=== PATIENT | male | born 1950 | race Caucasian/White ===

== ENCOUNTER 2019-06-02 09:50 | Inpatient (IN) | payer BC, MEDICARE ==
[2019-06-02 11:27] LABS: Hemoglobin 15.6 g/dL (14.0-18.0); Mean Corpuscular HGB CONC 33.8 g/dL (32.0-36.0); Mean Corpuscular Hemoglobin 30.5 pg (27.0-31.0); Mean Corpuscular Volume 90.4 fL (78.0-98.0); Mean Platelet Volume 7.3 fL (7.4-10.4); Platelet Count 202 thou/uL (130-400); RBC Distribution Width 11.9 % (11.5-14.5); Red Blood Cell (RBC) Count 5.12 mill/uL (4.70-6.10)
[2019-06-02 11:49] LABS: ALT (SGPT) 33 U/L (8-55); AST (SGOT) 25 U/L (5-34); Albumin 4.5 g/dL (3.4-4.8); Alkaline Phosphatase 73 U/L (40-110); Anion Gap 10 mmol/L (10-20); BUN (Urea Nitrogen) 12 mg/dL (8.4-25.7); Bilirubin, Total 0.5 mg/dL (0.2-1.2); Calc. Creatinine Clearance 0 mL/min (70-130); Carbon Dioxide 33 mmol/L (23-31); Chloride 102 mmol/L (98-107); Estimated GFR-MDRD 79; Glucose 113 mg/dL (80-115); Potassium 4.8 mmol/L (3.5-5.1); Protein, Total 7.5 g/dL (5.8-8.1); Sodium 140 mmol/L (136-145)
[2019-06-02] MEDS ORDERED: Midazolam HCl 2 mg/2 ml Vial ONE (12:01)
[2019-06-02] MEDS ORDERED: Fentanyl 100 MCG/2 ML VIAL ONE (12:01)
[2019-06-02] MEDS ORDERED: Communication Order-Pharmacy FS SCH (13:48)
[2019-06-02] MEDS ORDERED: Aspirin 81 mg Enteric Coated Tablet PO SCH (14:00)
--- NOTE | 2019-06-02 14:15 | CON ---
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 He remains fairly active outdoors, and over the past couple of months, he has noticed some sharp chest pains, not necessarily related to exertion. He had not seen a doctor in many years. He did have a history of mild hypertension, on no medication. He was seen by Dr. Nathaniel Kuo, where he was noted to have elevated cholesterol level and referred to Dr. García, where a stress test was done yesterday, which was markedly abnormal. The patient underwent cardiac catheterization today showing 95% stenosis in his proximal LAD and mid LAD with an intervening diagonal, a 90% ramus stenosis, 30% stenosis in OM and a 90% stenosis in the large right coronary artery and its midportion that fed collaterals to the left LAD system. Left ventricular systolic function appeared normal on LV gram. PAST SURGICAL HISTORY: Includes a previous left nephrectomy at age 11. SOCIAL HISTORY: He is a nonsmoker. He is . REVIEW OF SYSTEMS: Negative for symptoms of a TIA or stroke. No history of GI bleeding or abnormalities of his bowel movements. He has nocturia x2. He denies peripheral edema or palpitations. PHYSICAL EXAMINATION: GENERAL: He is alert, cooperative gentleman, in no distress. VITAL SIGNS: Blood pressure is 140/80 and heart rate 80. NECK: No carotid bruits. LUNGS: Clear to auscultation. CARDIAC: Regular rate and rhythm. No murmurs. ABDOMEN: Mildly obese, nontender. No aneurysm. EXTREMITIES: He has easily palpable pedal pulses. His right arm dominant with a good left Po's test. PLAN: At this time is for coronary bypass grafting to the distal right coronary artery, ramus if diagonal is large enough and then the LAD. Informed consent has been obtained and I have discussed the case separately with the patient and . Job ID: [id number]
[2019-06-02] MEDS ORDERED: Atorvastatin Calcium 20 MG TAB PO SCH (21:00)
[2019-06-03] MEDS ORDERED: Nitroglycerin 0.4 MG TAB (25 Tab Bottle) SL PRN (00:03)
[2019-06-03] MEDS ORDERED: Acetaminophen/Codeine 30-300mg Tablet PO PRN ×2 (00:03)
[2019-06-03] MEDS ORDERED: CEFAZOLIN 2 GM in Premix Bag 1 BAG IVPB SCH (05:45)
[2019-06-03] MEDS ORDERED: Albumin 5% 500 ML ONE (06:45)
[2019-06-03] MEDS ORDERED: Prevnar 13-Val Conj/PF 0.5 ML SYRINGE IM ONE (09:00)
[2019-06-03] MEDS ORDERED: Heparin 10,000 UNITS/1 ML VIAL 30,000 UNITS in Sodium Chloride 0.9% 1,000 ML FS SCH (10:45)
[2019-06-03] MEDS ORDERED: Cardioplegic Soln 1,000 ML BAG ONE (11:26)
[2019-06-03] MEDS ORDERED: Rocuronium Bromide 10 MG/ML (10ML VIAL) ONE (11:26)
[2019-06-03] MEDS ORDERED: Thrombin 5000 UNITS/5 ML VIAL ONE (11:26)
[2019-06-03] MEDS ORDERED: Papaverine 60 MG/2 ML VIAL ONE (11:26)
[2019-06-03] MEDS ORDERED: Magnesium Sulfate 1 GM/2 ML VIAL ONE (11:26)
[2019-06-03] MEDS ORDERED: Sodium Bicarb 50 MEQ/50 ML Abboject 8.4% SYRINGE ONE (11:26)
[2019-06-03] MEDS ORDERED: Lidocaine 1% PF 5 ML VIAL ONE (11:26)
[2019-06-03] MEDS ORDERED: Heparin 5,000 UNITS/ML VIAL ONE (11:26)
[2019-06-03] MEDS ORDERED: Heparin 30,000 units/30 ml VIAL ONE (11:26)
[2019-06-03] MEDS ORDERED: Potassium Chloride 60 MEQ/30 ML VIAL ONE (11:26)
[2019-06-03] MEDS ORDERED: Lidocaine 2% PF 5 ML VIAL ONE (11:26)
[2019-06-03] MEDS ORDERED: Aminocaproic Acid 5 GM/20 ML VIAL ONE (11:26)
[2019-06-03] MEDS ORDERED: Calcium Chloride 1 GM/10 ML Abboject SYRINGE ONE (11:26)
[2019-06-03] MEDS ORDERED: Vecuronium 10 MG VIAL ONE ×2 (11:26→14:39)
[2019-06-03] MEDS ORDERED: PROPOFOL 200 MG/20 ML VIAL ONE (11:26)
[2019-06-03] MEDS ORDERED: Protamine Sulfate 250 MG/25 ML VIAL ONE (11:26)
[2019-06-03] MEDS ORDERED: Norepinephrine 4 MG/4 ML VIAL ONE (11:49)
[2019-06-03] MEDS ORDERED: Nitroglycerin 50 MG/250 ML BOT 250 ML ONE (11:49)
[2019-06-03] MEDS ORDERED: Fentanyl 250 MCG/5 ML VIAL ONE (12:03)
[2019-06-03] MEDS ORDERED: Midazolam HCl 5 mg/5 ml Vial ONE (12:03)
[2019-06-03] MEDS ORDERED: Insulin Regular 300 UNITS/3 ML VIAL ONE ×2 (12:54→13:14)
[2019-06-03] MEDS ORDERED: PHENYLEPHRINE-NS 100 MCG/ML 10 ML SYRINGE ONE (13:53)
[2019-06-03 16:22] LABS: Actual Bicarbonate (HCO3a) 19.9 mEq/L (22-28); Base Excess (BEa) -3.5 mEq/L (-2.0 to +3.0); CO2 Tension 31.1 mmHg (35.0-45.0); Carboxyhemoglobin (COHb) 0.5 gm% (0.0-3.0); Hemoglobin (Hb) 12.9 g/dL (14.0-18.0); O2 Tension (PaO2) 70.8 mmHg (> 80.0); Potassium - ABG Lab 4.02 mmol/L (3.70-5.30); Puncture Site ALINE; pH, Arterial 7.42 (7.35-7.45)
[2019-06-03] MEDS ORDERED: Promethazine HCl 25 MG/ML VIAL IM PRN (16:22)
[2019-06-03] MEDS ORDERED: Morphine 2 MG/ML SYRINGE SLOW IVP PRN (16:22)
[2019-06-03] MEDS ORDERED: hydrALAZINE 20 MG/ML VIAL SLOW IVP PRN (16:22)
[2019-06-03] MEDS ORDERED: Fentanyl 100 MCG/2 ML VIAL SLOW IVP PRN (16:22)
[2019-06-03] MEDS ORDERED: Norepinephrine 8 MG/0.9% NS 250 ML IVPB PRN (16:22)
[2019-06-03] MEDS ORDERED: Hetastarch 6% 500 ML 500 ML IVPB PRN (16:22)
[2019-06-03] MEDS ORDERED: niCARdipine 25 MG in Sodium Chloride 0.9% 250 ML 240 ML IVPB PRN (16:22)
[2019-06-03] MEDS ORDERED: DOPamine 400 MG/D5W 250 ML 250 ML IVPB PRN (16:22)
[2019-06-03] MEDS ORDERED: Acetaminophen 325 MG TAB PO PRN (16:22)
[2019-06-03] MEDS ORDERED: Bisacodyl 10 MG SUPP PR PRN (16:22)
[2019-06-03] MEDS ORDERED: HYDROcodone/Acetaminophen 5/325 mg Tablet PO PRN (16:22)
[2019-06-03] MEDS ORDERED: Mag-Al 1200 mg/1200 mg/30 ML UDCUP PO PRN (16:22)
[2019-06-03] MEDS ORDERED: Potassium Chloride 20 MEQ/100 ML PREMIX BAG IVPB PRN (16:22)
[2019-06-03] MEDS ORDERED: Post-Op Insulin Drip Protocol IVPB ONE (16:22)
[2019-06-03] MEDS ORDERED: Nitroglycerin 50 MG/250 ML BOT 250 ML IVPB PRN (16:22)
[2019-06-03] MEDS ORDERED: Guaifenesin DM 100-10/5 ML UDCUP PO PRN (16:22)
[2019-06-03] MEDS ORDERED: Bisacodyl 5 MG TAB PO PRN (16:22)
[2019-06-03 16:23] LABS: ALV-art Gradient 246.825 (0-20)
[2019-06-03 16:29] LABS: #Eosinphils 0.1 thou/uL (0.0-0.7); #Lymphocytes 2.5 thou/uL (1.20-3.40); #Monocytes 0.8 thou/uL (0.11-0.59); #Neutrophils 10.2 thou/uL (1.40-6.50); %Basophils 0.3 % (0.0-1.0); %Eosinophils 0.6 % (0.0-10.0); %Lymphocytes 18.4 % (21.0-51.0); %Monocytes 5.5 % (0.0-10.0); %Neutrophils 75.1 % (42.0-75.0); Hemoglobin 12.7 g/dL (14.0-18.0); Mean Corpuscular HGB CONC 34.1 g/dL (32.0-36.0); Mean Corpuscular Hemoglobin 30.5 pg (27.0-31.0); Mean Corpuscular Volume 89.3 fL (78.0-98.0); Mean Platelet Volume 6.8 fL (7.4-10.4); Platelet Count 124 thou/uL (130-400); RBC Distribution Width 11.8 % (11.5-14.5); Red Blood Cell (RBC) Count 4.16 mill/uL (4.70-6.10); White Blood Cell (WBC) Count 13.6 thou/uL (4.8-10.8)
[2019-06-03 16:35] LABS: INR-International Normal Ratio 1.3; PTT 29.5 SEC (22.9-36.1); Prothrombin Time 15.7 SEC (12.0-14.7)
[2019-06-03 16:41] LABS: Anion Gap 9 mmol/L (10-20); BUN (Urea Nitrogen) 10 mg/dL (8.4-25.7); Calc. Creatinine Clearance 103 mL/min (70-130); Calcium 7.6 mg/dL (7.8-10.44); Carbon Dioxide 22 mmol/L (23-31); Chloride 114 mmol/L (98-107); Estimated GFR-MDRD Greater than 90; Glucose 98 mg/dL (80-115); Potassium 4.1 mmol/L (3.5-5.1); Sodium 141 mmol/L (136-145)
--- NOTE | 2019-06-03 16:46 | RAD ---
EXAM: CHEST ONE VIEW: 06/03/19 HISTORY: Postop open heart. FINDINGS: Endotracheal tube and right subclavian catheters as well as chest tubes in place. Minimal perihilar i ncreased markings probably some minimal subsegmental atelectasis as well as some pleural and parenchy mal changes in the left base, evidence for minimal pleural effusion. No pneumothorax. Poor inspirator y effort. IMPRESSION: Postop recent coronary artery bypass graft surgery. Increased markings bilaterally probably subsegmen rubi atelectasis. Minimal postoperative pleural and parenchymal changes in the left base. Continued ort term follow-up. POS: [facility]
[2019-06-03] MEDS ORDERED: Dextrose 5% in Water 1,000 ML IV PRN (16:50)
[2019-06-03] MEDS ORDERED: Dextrose 50% Abboject 50 ML SYRINGE SLOW IVP PRN (16:50)
[2019-06-03] MEDS ORDERED: HUMULIN R 100 UNITS in Sodium Chloride 0.9% 100 ML IVPB SCH (16:50)
[2019-06-03] MEDS ORDERED: Insulin Regular 300 UNITS/3 ML VIAL SC PRN (16:50)
[2019-06-03] MEDS: Fentanyl 100 MCG/2 ML VIAL SLOW IVP PRN ×2 (16:51→19:26)
[2019-06-03] MEDS: Lactated Ringer's 1,000 ML IV SCH (16:55)
[2019-06-03] MEDS ORDERED: Magnesium 2 GM/50 ML 2 GM in Premix Bag 1 BAG IVPB SCH (17:00)
--- NOTE | 2019-06-03 17:16 | CON ---
DATE OF CONSULTATION: HISTORY OF PRESENT ILLNESS: A 68-year-old gentleman, who underwent a cardiac cath following abnormal stress test. He is having some nonspecific chest pain. It reveals severe multivessel coronary artery disease and underwent bypass surgery by Dr. Payan. Postop, he is in the ICU on the vent. He is intubated and sedated. No family members are present because of the ongoing national quarantine. History is apparently that he is a nonsmoker. PAST SURGERIES: Previous nephrectomy at a young age of 11. CHRONIC MEDICATIONS: He was recently started apparently on blood pressure medication. SOCIAL AND FAMILY HISTORY: Otherwise unremarkable. REVIEW OF SYMPTOMS: Otherwise unremarkable. PHYSICAL EXAMINATION: GENERAL: Postop on the vent. VITAL SIGNS: Pulse 90, blood pressure 140/80, saturations 100%, respirations 18. CHEST: Revealed no wheezing or crackles. CARDIAC: Normal S1 and S2. No gallops. ABDOMEN: No masses. DIAGNOSTIC STUDIES: X-ray shows a small left pleural effusion. White count 13,000, hemoglobin and hematocrit are 12 and 37, platelet count is slightly decreased at 127. Renal function normal. PO2 is . Lytes are normal. ASSESSMENT AND PLAN: Status post coronary artery bypass grafting, multivessel; small left pleural effusion; nonsmoker. Wean per protocol. Pulmonary will follow while in the ICU. Consultation note, 70 minutes, 50% direct patient care. Job ID: [id number]
--- NOTE | 2019-06-03 17:25 | OP ---
DATE OF PROCEDURE: 06/03/2019 PREOPERATIVE DIAGNOSIS: Coronary artery disease. PROCEDURES PERFORMED: Coronary artery bypass graft x3, left internal mammary to the LAD and the LAD was small measuring over 1 mm, saphenous vein good quality to a main right coronary artery probably two and half to 3 mm and to a high diagonal measuring 1.25 to 1.5. The ramus was felt to be too small to graft. [employer] CLERK: Mauri. TRANSFUSION: None. DESCRIPTION OF PROCEDURE: After adequate anesthesia had been obtained, the patient was prepped and draped. Dr. Dotson did an endovascular vein harvest of the left greater saphenous vein while I performed a median sternotomy. The left internal mammary artery was harvested widely entering the left pleura superiorly. Following heparinization, the mammary was divided distally, passed posterior to the thymus gland. It was treated with intraluminal papaverine. Aorta and right atrium were cannulated and cardiopulmonary bypass begun. Aorta was cross clamped and after a liter of cold blood cardioplegia, the right coronary artery, the diagonal and LAD grafts were then completed. A 1 mm probe was passed on the LAD proximally and distally prior to tying the suture line. The cross-clamp was removed and the partial occluding clamp placed and 2 proximal anastomoses were completed and distal anastomosis were hemostatic. Following this, the patient was weaned from cardiopulmonary bypass. However, a fairly large amount of bright red blood was coming out of the pericardial well and it was noted that the toe of the right coronary artery distal anastomosis was bleeding rather vigorously. The patient was elected to be placed back on cardiopulmonary bypass and still I did not feel I could safely place sutures here. Aorta was re-crossclamped and 500 mL of cardioplegic solution was given. Following which, the distal anastomosis was taken down and redone. Following this, the cross-clamp was removed and the patient was again weaned from cardiopulmonary bypass. Cannulas were removed and protamine given systemically and the aortic cannulation site was secured with a 4-0 Prolene. Rings were placed on the aortic root and around the vein grafts. Mediastinal and left pleural drains were placed. Following which, the sternum was reapproximated with #7 interrupted wire using vancomycin paste and platelet rich blood on the sternal edges. Subcutaneous tissue was closed with [id number] interrupted Vicryl sutures and the skin was closed with a running suture. The patient is to be taken to the ICU in guarded condition. Job ID: [id number]
[2019-06-03] MEDS: Ketorolac Tromethamine 30 MG/ML VIAL IVP SCH ×2 (17:27→23:53)
[2019-06-03] MEDS: CEFAZOLIN 2 GM in Premix Bag 1 BAG IVPB SCH (17:28)
[2019-06-03] MEDS: Ondansetron PF 4 MG/2 ML Vial IVP PRN ×2 (17:41→22:42)
[2019-06-03] MEDS ORDERED: Norepinephrine 8 MG in Dextrose 5% in Water 242 ML IVPB PRN (18:55)
[2019-06-03 20:52] LABS: Hemoglobin 11.4 g/dL (14.0-18.0)
[2019-06-03] MEDS ORDERED: Famotidine/PF 20 mg/2ml Vial SLOW IVP SCH (21:00)
[2019-06-03 21:18] LABS: Potassium 4.6 mmol/L (3.5-5.1)
[2019-06-03] MEDS: HYDROcodone/Acetaminophen 5/325 mg Tablet PO PRN (22:40)
[2019-06-04] MEDS: CEFAZOLIN 2 GM in Premix Bag 1 BAG IVPB SCH (01:41)
[2019-06-04 04:55] LABS: #Lymphocytes 1.2 thou/uL (1.20-3.40); #Monocytes 0.8 thou/uL (0.11-0.59); #Neutrophils 7.7 thou/uL (1.40-6.50); %Basophils 0.1 % (0.0-1.0); %Eosinophils 0.1 % (0.0-10.0); %Lymphocytes 12.4 % (21.0-51.0); %Monocytes 7.8 % (0.0-10.0); %Neutrophils 79.6 % (42.0-75.0); Hemoglobin 10.4 g/dL (14.0-18.0); Mean Corpuscular HGB CONC 34.4 g/dL (32.0-36.0); Mean Corpuscular Hemoglobin 31.1 pg (27.0-31.0); Mean Corpuscular Volume 90.6 fL (78.0-98.0); Mean Platelet Volume 7.9 fL (7.4-10.4); Platelet Count 123 thou/uL (130-400); Red Blood Cell (RBC) Count 3.34 mill/uL (4.70-6.10); White Blood Cell (WBC) Count 9.6 thou/uL (4.8-10.8)
[2019-06-04 05:29] LABS: Anion Gap 11 mmol/L (10-20); BUN (Urea Nitrogen) 12 mg/dL (8.4-25.7); Calc. Creatinine Clearance 88 mL/min (70-130); Calcium 7.7 mg/dL (7.8-10.44); Carbon Dioxide 23 mmol/L (23-31); Chloride 108 mmol/L (98-107); Estimated GFR-MDRD 86; Glucose 137 mg/dL (80-115); Potassium 4.3 mmol/L (3.5-5.1); Sodium 138 mmol/L (136-145)
[2019-06-04] MEDS: HYDROcodone/Acetaminophen 5/325 mg Tablet PO PRN (05:42)
[2019-06-04] MEDS: Ketorolac Tromethamine 30 MG/ML VIAL IVP SCH ×3 (06:33→17:52)
--- NOTE | 2019-06-04 07:08 | PRG ---
DATE OF SERVICE: 06/04/2019 SUBJECTIVE: The patient sitting up in a chair postop day #1 from cardiac surgery. OBJECTIVE: VITAL SIGNS: His blood pressure is greater than 100, and his heart rate is about 80. His chest tube output is about 650 mL overnight in his thin serous in appearance in the tubing. LUNGS: Clear. GENERAL: He is alert, awake, and questions have been answered. LABORATORY DATA: His hemoglobin is 10.4, which is a slight drift overnight by about 1 g. His creatinine is 0.88 and sugars on a half unit of insulin an hour about 140. PLAN: Plan at this time is to transfer him to the floor, leave his chest tubes and Tomas overnight. We will begin statin and monitor sugars for another 24 hours off the insulin drip and determine at that time whether any further sugars need to be checked. Job ID: [id number]
--- NOTE | 2019-06-04 07:32 | RAD ---
SINGLE VIEW CHEST: Date: 06/04/2019 COMPARISON: 06/03/2019 HISTORY: Status post open heart surgery. FINDINGS: Single view of the chest shows an enlarged but stable cardiomediastinal silhouette. The patient is st atus post CABG. The endotracheal tube has been removed. Central venous catheter and mediastinal drain /chest tube are unchanged in position. IMPRESSION: Stable exam status post extubation. POS: C
[2019-06-04 08:03] LABS: Cardiac Risk 3.3 (Less than 4.5)
[2019-06-04] MEDS ORDERED: Mineral Oil ENEMA PR PRN (08:09)
[2019-06-04] MEDS ORDERED: Mag-Al 1200 mg/1200 mg/30 ML UDCUP PO PRN (08:09)
[2019-06-04] MEDS ORDERED: Bisacodyl 5 MG TAB PO PRN (08:09)
[2019-06-04] MEDS ORDERED: Bisacodyl 10 MG SUPP PR PRN (08:09)
[2019-06-04] MEDS ORDERED: Guaifenesin DM 100-10/5 ML UDCUP PO PRN (08:09)
[2019-06-04] MEDS ORDERED: Acetaminophen 325 MG TAB PO PRN (08:09)
[2019-06-04] MEDS ORDERED: Ondansetron PF 4 MG/2 ML Vial IVP PRN (08:09)
[2019-06-04] MEDS ORDERED: Nitroglycerin 0.4 MG TAB (25 Tab Bottle) SL PRN (08:09)
[2019-06-04] MEDS ORDERED: Dextrose 50% Abboject 50 ML SYRINGE SLOW IVP PRN (08:21)
[2019-06-04] MEDS ORDERED: Dextrose 5% in Water 1,000 ML IV PRN (08:21)
[2019-06-04] MEDS: Polyethylene Glycol 3350 17 GM Packet PO SCH (08:25)
[2019-06-04] MEDS: Famotidine 20 MG TAB PO SCH ×2 (08:25→22:04)
[2019-06-04] MEDS: Aspirin 325 mg Enteric Coated Tablet PO SCH (08:25)
[2019-06-04] MEDS ORDERED: Aspirin 325 MG TAB PO SCH (09:00)
[2019-06-04] MEDS: Lactated Ringer's 1,000 ML IV SCH (09:45)
[2019-06-04] MEDS: Insulin Regular 300 UNITS/3 ML VIAL SC PRN (12:48)
--- NOTE | 2019-06-04 16:33 | PRG ---
DATE OF SERVICE: 06/04/2019 OBJECTIVE: VITAL SIGNS: Shiva Lemus is afebrile. Heart rate is 84, respiratory rate is 17, on 2 L, blood pressure . GENERAL: He is in distress. LUNGS: Clear. HEART: Regular rhythm. ABDOMEN: Soft. LABORATORY DATA: White count , platelets 123. Sodium 138, potassium 4.3, chloride 108, bicarb 23, , creatinine 0.88. Blood gas yesterday afternoon prior to extubation; pH 7.42, CO2 of 31, and PO2 of 70. IMPRESSION: Status post bypass grafting, successfully weaned and extubated yesterday evening. He has minimal discomfort in his sternum at this time. He denies shortness of breath. He appears to be progressing nicely and is transferring out of critical care unit. We will sign off. Job ID: [id number]
[2019-06-04] MEDS: Enoxaparin Sodium 30 MG/0.3 ML SYRINGE SC SCH (22:03)
[2019-06-04] MEDS: Atorvastatin Calcium 20 MG TAB PO SCH (22:04)
[2019-06-05] MEDS: Ketorolac Tromethamine 30 MG/ML VIAL IVP SCH ×4 (00:24→17:14)
[2019-06-05 04:50] LABS: #Eosinphils 0.1 thou/uL (0.0-0.7); #Lymphocytes 2.3 thou/uL (1.20-3.40); #Monocytes 0.7 thou/uL (0.11-0.59); #Neutrophils 4.8 thou/uL (1.40-6.50); %Basophils 0.4 % (0.0-1.0); %Eosinophils 1.2 % (0.0-10.0); %Lymphocytes 29.1 % (21.0-51.0); %Monocytes 8.8 % (0.0-10.0); %Neutrophils 60.5 % (42.0-75.0); Hemoglobin 9.5 g/dL (14.0-18.0); Mean Corpuscular HGB CONC 32.9 g/dL (32.0-36.0); Mean Corpuscular Hemoglobin 30.1 pg (27.0-31.0); Mean Corpuscular Volume 91.4 fL (78.0-98.0); Platelet Count 105 thou/uL (130-400); RBC Distribution Width 11.9 % (11.5-14.5); Red Blood Cell (RBC) Count 3.14 mill/uL (4.70-6.10)
[2019-06-05 05:01] LABS: Hemoglobin A1c 6.1 % (4.0-6.0)
[2019-06-05 05:05] LABS: Anion Gap 8 mmol/L (10-20); BUN (Urea Nitrogen) 12 mg/dL (8.4-25.7); Calc. Creatinine Clearance 88 mL/min (70-130); Calcium 8.2 mg/dL (7.8-10.44); Carbon Dioxide 29 mmol/L (23-31); Chloride 106 mmol/L (98-107); Estimated GFR-MDRD 86; Glucose 115 mg/dL (80-115); Potassium 4.6 mmol/L (3.5-5.1); Sodium 138 mmol/L (136-145)
[2019-06-05] MEDS: Aspirin 325 mg Enteric Coated Tablet PO SCH (08:42)
[2019-06-05] MEDS: Famotidine 20 MG TAB PO SCH ×2 (08:42→20:08)
[2019-06-05] MEDS: Furosemide 40 MG TAB PO SCH (08:42)
[2019-06-05] MEDS: Potassium Chloride 10 MEQ TAB PO SCH (08:42)
[2019-06-05] MEDS: Polyethylene Glycol 3350 17 GM Packet PO SCH (08:42)
[2019-06-05] MEDS: Insulin Regular 300 UNITS/3 ML VIAL SC PRN ×2 (08:51→12:20)
[2019-06-05] MEDS: Atorvastatin Calcium 20 MG TAB PO SCH (20:07)
[2019-06-05] MEDS: Enoxaparin Sodium 30 MG/0.3 ML SYRINGE SC SCH (20:09)
[2019-06-05] MEDS: HYDROcodone/Acetaminophen 5/325 mg Tablet PO PRN (20:20)
[2019-06-06] MEDS: Ketorolac Tromethamine 30 MG/ML VIAL IVP SCH ×4 (00:47→17:47)
[2019-06-06 04:39] VITALS: BMI 26.5
--- NOTE | 2019-06-06 07:41 | RAD ---
SINGLE VIEW CHEST: Date: 06/06/2019 COMPARISON: 06/04/2019. HISTORY: Status post CABG. FINDINGS: Single view of the chest shows an enlarged but stable cardiomediastinal silhouette. The patient is st atus post CABG. The lines and tubes are unchanged in position. There is obscurity of the left hemidia phragm which could represent small left pleural effusion. IMPRESSION: Stable exam. POS: [facility]
[2019-06-06] MEDS: Aspirin 325 mg Enteric Coated Tablet PO SCH (08:55)
[2019-06-06] MEDS: Polyethylene Glycol 3350 17 GM Packet PO SCH (08:55)
[2019-06-06] MEDS: Potassium Chloride 10 MEQ TAB PO SCH (08:55)
[2019-06-06] MEDS: Furosemide 40 MG TAB PO SCH (08:55)
[2019-06-06] MEDS: Famotidine 20 MG TAB PO SCH ×2 (08:55→20:16)
[2019-06-06] MEDS: Insulin Regular 300 UNITS/3 ML VIAL SC PRN ×2 (09:08→11:56)
[2019-06-06] MEDS: Metoprolol Tartrate 25 MG TAB PO SCH (20:16)
[2019-06-06] MEDS: Atorvastatin Calcium 20 MG TAB PO SCH (20:16)
[2019-06-06] MEDS: Enoxaparin Sodium 30 MG/0.3 ML SYRINGE SC SCH (20:44)
[2019-06-07] MEDS: Potassium Chloride 10 MEQ TAB PO SCH (09:10)
[2019-06-07] MEDS: Famotidine 20 MG TAB PO SCH (09:10)
[2019-06-07] MEDS: Metoprolol Tartrate 25 MG TAB PO SCH (09:10)
[2019-06-07] MEDS: Aspirin 325 mg Enteric Coated Tablet PO SCH (09:10)
[2019-06-07] MEDS: Furosemide 40 MG TAB PO SCH (09:10)
[2019-06-07] MEDS: Polyethylene Glycol 3350 17 GM Packet PO SCH (09:12)
--- NOTE | 2019-06-07 10:03 | PRG ---
DATE OF SERVICE: 06/07/2019 SUBJECTIVE: The patient, Shiva Lemus, is doing well post CABG. X-ray shows small left pleural effusion. OBJECTIVE: VITAL SIGNS: Temperature 98, pulse 76, O2 saturation 95% on room air, blood pressure 120\76_ CHEST: No wheezing or crackles. CARDIAC: Normal S1, S2_, CXR small effusion left DISPOSITION: Home. Follow up in the office as needed. Job ID: [id number] MTDD
[2019-06-07 12:46] VITALS: BP 142/74; TEMP 98
--- NOTE | 2019-06-10 07:35 | EKG ---
Test Reason : POST CABG Blood Pressure : / mmHG Vent. Rate : 086 BPM Atrial Rate : 086 BPM P-R Int : 188 ms QRS Dur : 076 ms QT Int : 388 ms P-R-T Axes : 040 042 069 degrees QTc Int : 464 ms Normal sinus rhythm Septal infarct , age undetermined Possible Lateral infarct , age undetermined Abnormal ECG No previous ECGs available Confirmed by ETIENNE NUNEZ MD ([id number]) on 06/10/2019 7:35:24 AM Referred By: VALENCIA Confirmed By:ETIENNE NUNEZ MD
[2019-06-10 14:12] LABS: Actual Bicarbonate (HCO3a) 22.8 mEq/L (22-28); Analyzer IN Cardio OR; Base Excess (BEa) -0.1 mEq/L (-2.0 to +3.0); CO2 Tension 32.3 mmHg (35.0-45.0); Calcium, Ionized 1.08 mmol/L (1.12-1.30); Carboxyhemoglobin (COHb) 0.5 gm% (0.0-3.0); Hemoglobin (Hb) 13.5 g/dL (14.0-18.0); O2 Tension (PaO2) 278.1 mmHg (> 80.0); Potassium - ABG Lab 3.63 mmol/L (3.70-5.30); pH, Arterial 7.47 (7.35-7.45)
[2019-06-10 14:16] LABS: Actual Bicarbonate (HCO3a) 19.5 mEq/L (22-28); Analyzer IN Cardio OR; Base Excess (BEa) -3.7 mEq/L (-2.0 to +3.0); CO2 Tension 29.8 mmHg (35.0-45.0); Calcium, Ionized 1.03 mmol/L (1.12-1.30); Carboxyhemoglobin (COHb) 0.4 gm% (0.0-3.0); Hemoglobin (Hb) 12.3 g/dL (14.0-18.0); O2 Tension (PaO2) 348.6 mmHg (> 80.0); Potassium - ABG Lab 3.63 mmol/L (3.70-5.30); pH, Arterial 7.43 (7.35-7.45)
[2019-06-10 14:16] LABS: Actual Bicarbonate (HCO3a) 22.7 mEq/L (22-28); Analyzer IN Cardio OR; CO2 Tension 38.5 mmHg (35.0-45.0); Calcium, Ionized 0.96 mmol/L (1.12-1.30); Carboxyhemoglobin (COHb) 0.3 gm% (0.0-3.0); Hemoglobin (Hb) 9.5 g/dL (14.0-18.0); O2 Tension (PaO2) 456.3 mmHg (> 80.0); Potassium - ABG Lab 4.76 mmol/L (3.70-5.30); pH, Arterial 7.39 (7.35-7.45)
[2019-06-10 14:17] LABS: Actual Bicarbonate (HCO3v) 22 mEq/L (22-28); Analyzer IN Cardio OR; Base Excess -3.2 mEq/L (-2.0 to +3.0); Calcium, Ionized 0.97 mmol/L (1.16-1.32); Chloride (ABG LAB) 109 mmol/L (98-106); Potassium - ABG Lab 4.64 mmol/L (3.70-5.30); Sodium 136.3 mmol/L (133-146); pH (venous) 7.34 (7.32-7.43)
[2019-06-10 14:17] LABS: Actual Bicarbonate (HCO3a) 22.4 mEq/L (22-28); Analyzer IN Cardio OR; Base Excess (BEa) -1.4 mEq/L (-2.0 to +3.0); CO2 Tension 33.7 mmHg (35.0-45.0); Calcium, Ionized 1.16 mmol/L (1.12-1.30); Carboxyhemoglobin (COHb) 0.3 gm% (0.0-3.0); Hemoglobin (Hb) 9.4 g/dL (14.0-18.0); pH, Arterial 7.44 (7.35-7.45)
[2019-06-10 14:18] LABS: Actual Bicarbonate (HCO3a) 21.9 mEq/L (22-28); Analyzer IN Cardio OR; Base Excess (BEa) -1.1 mEq/L (-2.0 to +3.0); CO2 Tension 30.3 mmHg (35.0-45.0); Calcium, Ionized 1.09 mmol/L (1.12-1.30); Carboxyhemoglobin (COHb) 0.3 gm% (0.0-3.0); Hemoglobin (Hb) 9.7 g/dL (14.0-18.0); O2 Tension (PaO2) 276.9 mmHg (> 80.0); Potassium - ABG Lab 4.38 mmol/L (3.70-5.30); pH, Arterial 7.48 (7.35-7.45)
[2019-06-10 14:18] LABS: Actual Bicarbonate (HCO3a) 20.7 mEq/L (22-28); Analyzer IN Cardio OR; Base Excess (BEa) -2.8 mEq/L (-2.0 to +3.0); CO2 Tension 31.8 mmHg (35.0-45.0); Calcium, Ionized 1.05 mmol/L (1.12-1.30); Carboxyhemoglobin (COHb) 0.3 gm% (0.0-3.0); Hemoglobin (Hb) 11.6 g/dL (14.0-18.0); O2 Tension (PaO2) 182.1 mmHg (> 80.0); Potassium - ABG Lab 3.71 mmol/L (3.70-5.30); pH, Arterial 7.43 (7.35-7.45)
[2019-06-10 14:19] LABS: Puncture Site ALINE
[2019-06-10 14:19] LABS: Puncture Site ALINE
[2019-06-10 14:20] LABS: Puncture Site ALINE
[2019-06-10 14:21] LABS: O2 Tension (PaO2) 513.2 mmHg (> 80.0); Puncture Site ALINE
[2019-06-10 14:22] LABS: Puncture Site ALINE
[2019-06-10 14:22] LABS: Puncture Site ALINE
== END 2019-06-07 14:05 | disposition home or self-care (01) | DRG 234 ==
LOC: CCL 09:50 → 2NO 12:36 → CCU 06-03 07:44 → 2NO 06-04 09:42
PROVIDERS: ADMIT Internal Medicine Cardiovascular Disease; ATTEND Internal Medicine Cardiovascular Disease
PROC: 4A023N7 Measurement of Cardiac Sampling and Pressure, Left Heart, Percutaneous Approach (ICD-10-PCS; 2019-06-02)
PROC: B2111ZZ Fluoroscopy of Multiple Coronary Arteries using Low Osmolar Contrast (ICD-10-PCS; 2019-06-02)
PROC: B2151ZZ Fluoroscopy of Left Heart using Low Osmolar Contrast (ICD-10-PCS; 2019-06-02)
PROC: 021109W Bypass Coronary Artery, Two Arteries from Aorta with Autologous Venous Tissue, Open Approach (ICD-10-PCS; principal; 2019-06-03)
PROC: 02100Z9 Bypass Coronary Artery, One Artery from Left Internal Mammary, Open Approach (ICD-10-PCS; 2019-06-03)
PROC: 06BQ4ZZ Excision of Left Saphenous Vein, Percutaneous Endoscopic Approach (ICD-10-PCS; 2019-06-03)
PROC: 5A1221Z Performance of Cardiac Output, Continuous (ICD-10-PCS; 2019-06-03)
PROC: 3E033XZ Introduction of Vasopressor into Peripheral Vein, Percutaneous Approach (ICD-10-PCS; 2019-06-03)
DX: I25.10 Atherosclerotic heart disease of native coronary artery without angina pectoris (principal); J90 Pleural effusion, not elsewhere classified; I10 Essential (primary) hypertension; Z90.5 Acquired absence of kidney; Z79.899 Other long term (current) drug therapy
CPT/HCPCS: 36415; 36416; 36430; 71045; 76942; 80048; 80053; 80061; 82805; 83036; 85025; 85027; 85610; 85730; 86850; 86900; 86901; 93005; 93010; 93458; 93798; 94002; 94150; 99152; 99153; C1769; J0690; J1642; J1644; J1650; J1815; J1885; J2001; J2250; J2405; J2440; J2704; J2720; J3010; J3370; J3475; J3480; J3490; J7070; P9045; S0017; S0028